=== PATIENT | male | born 1975 | race African-American/Black ===

== ENCOUNTER 2025-04-22 12:36 | Emergency (ER) | payer SELFPAY ==
[~2025-04-22] VITALS: Ht 170.2 cm; Wt 102.0 kg
[2025-04-22 12:47] VITALS: TEMP 36.9; O2SAT 100
[2025-04-22 16:56] LABS: EOSINOPHILS % 7.8 % (0.0-5.0); MEAN PLATELET VOLUME 9.4 fl (7.4-10.4); NEUTROPHILS % 67.9 % (40.0-76.0)
[2025-04-22 16:59] LABS: BASOPHILS % 0.9 % (0.0-2.0); HEMATOCRIT. 42.4 % (42.0-52.0); HEMOGLOBIN. 14.4 g/dL (14.0-18.0); LYMPHOCYTES % 15.0 % (20.0-50.0); MONOCYTES % 8.4 % (2.0-8.0); PLATELET 198 x1000/uL (130-400); RED BLOOD CELL COUNT 4.82 mill/uL (4.7-6.1); RED CELL DISTRIBUTION WIDTH 14.4 % (11.6-14.6)
[2025-04-22 17:09] LABS: CREATININE 1.1 mg/dL (0.6-1.3)
[2025-04-22 17:10] LABS: UREA NITROGEN BLOOD 7 mg/dL (9-23)
[2025-04-22 17:11] LABS: ASPARTATE AMINOTRANSFERASE 20 IU/L (<34); PROTEIN TOTAL 7.9 g/dL (6.0-8.3)
[2025-04-22 17:12] LABS: BILIRUBIN DIRECT 0.2 mg/dL (<=3.0); BILIRUBIN TOTAL 0.9 mg/dL (0.1-1.0); TROPONIN I HIGH SENSITIVITY < 4 ng/L (3.0-53)
[2025-04-22] MEDS ORDERED: AMLO5TAB88 MT (18:31)
[2025-04-22 18:59] LABS: CLARITY URINE CLEAR (CLEAR); COLOR URINE YELLOW (YELLOW); GLUCOSE URINE NEGATIVE (NEGATIVE); KETONES URINE NEGATIVE (NEGATIVE); LEUKOCYTE ESTERASE URINE NEGATIVE (NEGATIVE); NITRITE URINE NEGATIVE (NEGATIVE); OCCULT BLOOD URINE NEGATIVE (NEGATIVE); PH URINE 5.5 (4.5-8.0); PROTEIN URINE NEGATIVE (NEGATIVE); SPECIFIC GRAVITY URINE 1.022 (1.005-1.030); UROBILINOGEN URINE 0.2 E.U./dL (0.2-1.0)
[2025-04-22 19:14] VITALS: BP 149/84; PULSE 80; RESP 16; O2SAT 100
== END 2025-04-22 19:16 | disposition home or self-care (01) ==
LOC: ER 12:36
DX: I10 Essential (primary) hypertension (principal); Z79.899 Other long term (current) drug therapy
CPT/HCPCS: 36415; 71045; 80048; 80076; 81003; 83735; 84484; 85025; 93005; 99285